=== PATIENT | male | born 2000 | race African-American/Black ===

== ENCOUNTER 2022-09-17 14:28 | Emergency (ER) | payer OTHER ==
[~2022-09-17] VITALS: Ht 185.4 cm; Wt 72.7 kg
[2022-09-17 14:40] VITALS: BP 126/76
== END 2022-09-17 17:00 | disposition left against medical advice (07) ==
LOC: EMS 14:37
DX: H53.8 Other visual disturbances (principal); Z53.21 Procedure and treatment not carried out due to patient leaving prior to being seen by health care provider